=== PATIENT | male | born 1970 | race Caucasian/White ===

== ENCOUNTER 2018-06-19 05:34 | Emergency (ER) | payer OTHER ==
[~2018-06-19] VITALS: Ht 185.4 cm; Wt 144.2 kg
[~2018-06-19 05:34] MED LIST: ACETAMINOPHEN-1 EAC1 PO; BACTRIM DS TAB1 EACH PO; DOXYCYCLINE 10100 MG PO; KEFLEX500 MG PO; ULTRAM 50MG TAB50 MG PO
[2018-06-19 05:53] LABS: ABSOLUTE EOSINOPHILS 0.2 thou/uL (0.0-0.7); ABSOLUTE LYMPHOCYTES 2.4 thou/uL (0.8-5.3); ABSOLUTE MONOCYTES 0.6 thou/uL (0.0-1.2); ABSOLUTE NEUTROPHILS 4.6 thou/uL (1.6-8.1); BASOPHILS 0.1 %; HEMATOCRIT 46.2 % (42.0-52.0); HEMOGLOBIN 16.4 gm/dL (14.0-18.0); LYMPHOCYTES 30.3 %; MCH 31.5 pg (26.0-34.0); MCHC 35.4 g/dL (28.0-37.0); MCV 89.1 fL (80.0-100.0); MONOCYTES 7.8 %; MPV 8.2 fl. (7.2-11.1); NUCLEATED RBCS 0 /100WBC; PLATELET COUNT* 227 thou/uL (150-400); POLYS 58.8 %; RBC 5.19 mil/uL (4.50-6.00); RDW-CV 12.9 % (10.5-14.5); WBC 7.8 thou/uL (4.0-11.0)
[2018-06-19 06:02] LABS: ANION GAP 9 mmol/L (7-16); BUN 12 mg/dL (7-18); CALCIUM 8.8 mg/dL (8.5-10.1); CHLORIDE 103 mmol/L (98-107); CO2 25 mmol/L (21-32); GLUCOSE 140 mg/dL (70-99); POTASSIUM 3.7 mmol/L (3.5-5.1); SODIUM 137 mmol/L (136-145)
[2018-06-19 06:05] LABS: INR 1.1; PROTIME 11.2 Seconds (9.20-11.50)
[2018-06-19 06:10] LABS: URINE BILIRUBIN NEGATIVE (Negative); URINE BLOOD 1+ (Negative); URINE CLARITY CLEAR; URINE COLOR YELLOW; URINE GLUCOSE-RANDOM NEGATIVE (Negative); URINE KETONES NEGATIVE (Negative); URINE LEUKOCYTES-REFLEX NEGATIVE (Negative); URINE NITRITE-REFLEX NEGATIVE (Negative); URINE PROTEIN NEGATIVE (Negative); URINE SPECIFIC GRAVITY >= 1.030 (1.005-1.030); URINE UROBILINOGEN 0.2 E.U./dl (0.2-1.0)
[2018-06-19 06:13] LABS: ALBUMIN 3.5 g/dL (3.4-5.0); ALKALINE PHOSPHATASE 111 U/L (46-116); LIPASE 152 U/L (73-393); NT-PRO BRAIN NAT PEPTIDE 11 pg/mL (<300); SGOT 32 U/L (15-37); SGPT 78 U/L (30-65); TOTAL BILIRUBIN 0.4 mg/dL (<0.1-1.0); TOTAL PROTEIN 7.6 g/dL (6.4-8.2); TROPONIN-I LEVEL <0.06 ng/mL (<0.06)
[2018-06-19 06:17] LABS: AMP/METHAMP Negative (Negative); BARBITURATES Negative (Negative); BENZODIAZEPINES Negative (Negative); COCAINE Negative (Negative); METHADONE Negative (Negative); OPIATES Negative (Negative); PCP Negative (Negative); THC Negative (Negative)
[2018-06-19 06:27] LABS: CASTS None Seen /LPF (None Seen); CRYSTALS None Seen /LPF (None Seen); SQUAMOUS NONE SEEN /LPF (0-3); URINE RBC 3-10 Few /HPF (0-2); URINE WBC-REFLEX 0-5 Rare /HPF (0-5)
[2018-06-19 06:29] LABS: BACTERIA-REFLEX 1-9 Few /HPF (None Seen); MUCUS 4-6 Moderate strn/LPF (None Seen)
[2018-06-19 06:35] VITALS: BP 110/65
--- NOTE | 2018-06-19 09:56 | EKG ---
[place] [address] ELECTROCARDIOGRAM REPORT Name: NICOLAS GLOVER Room: [place]#: [id number] Admission: 06/19/18 Attend Phys: Discharge: 06/19/18 Date of : 70 Report #: [id number] THIS REPORT FOR: //name// [facility] ED Test Date: 2018-06-19 Test Time: 05:39:57 Pat Name: NICOLAS GLOVER Department: Room: Gender: M Postpartum Rn: : 1970 Requested By: Fabiola Carpenter Order Number: [id number] MD: Dallas Cunningham Measurements Intervals [place] Rate: 84 P: 49 IA: 155 QRS: 7 QRSD: 97 T: 14 QT: 359 QTc: 425 Interpretive Statements Sinus rhythm Probable left atrial enlargement Minimal ST depression, lateral leads Baseline wander in lead(s) V2,V6 No previous ECG available for comparison Electronically Signed On 06-19-2018 9:56:07 [employer] by Dallas Cunningham [email or web address] <ELECTRONICALLY SIGNED> By: Dallas Cunningham MD, [facility] 06/19/18 0956 D: 01/538 8 Dallas Cunningham MD, FACC /EPI
== END 2018-06-19 06:35 | disposition home or self-care (01) ==
LOC: M.ERS 05:34
PROVIDERS: Emergency Medicine
DX: F41.9 Anxiety disorder, unspecified (principal); E11.9 Type 2 diabetes mellitus without complications

== ENCOUNTER 2021-01-03 18:51 | Emergency (ER) | payer OTHER ==
[~2021-01-03] VITALS: Ht 182.9 cm; Wt 133.8 kg
[2021-01-04] MEDS ORDERED: AMITRIPTYLINE H75 M1 PO (02:28)
[2021-01-04] MEDS ORDERED: XANAX 0.5 MG0.5 MG PO (02:28)
[2021-01-04 02:48] VITALS: BP 148/79
== END 2021-01-04 02:48 | disposition home or self-care (01) ==
LOC: M.ERS 18:51
DX: F41.9 Anxiety disorder, unspecified (principal)